=== PATIENT | male | born 1975 | race Asian ===

== ENCOUNTER 2022-10-18 13:20 | Emergency (ER) | payer BC, OTHER ==
[2022-10-18 13:26] VITALS: BP 128/88; PULSE 73; RESP 18; TEMP 97.9; BMI 25.4
[2022-10-18] MEDS ORDERED: KETOROLAC TROMETHAMINE 60 MG/2 ML VIAL IM ONE (13:33)
[2022-10-18] MEDS ORDERED: LIDOCAINE 5% TOPICAL PATCH TP ONE (13:33)
[2022-10-18] MEDS ORDERED: KETOROLAC TROMETHAMINE 60 MG/2 ML VIAL ONE (13:41)
[2022-10-18] MEDS ORDERED: LIDOCAINE 5% TOPICAL PATCH ONE (13:42)
[2022-10-18] MEDS ORDERED: LIDOCAINE PATCH REMOVAL MC SCH (22:00)
== END 2022-10-18 15:18 | disposition home or self-care (01) ==
LOC: FER 13:20
PROC: 3E023GC Introduction of Other Therapeutic Substance into Muscle, Percutaneous Approach (ICD-10-PCS; principal; 2022-10-18)
DX: M54.50 Low back pain, unspecified (principal)
CPT/HCPCS: 72070-TC-FY; 72100-TC-FY; 99284-25